=== PATIENT | male | born 1965 | race African-American/Black ===

== ENCOUNTER 2024-10-16 07:00 | Emergency (ER) | payer OTHER ==
[~2024-10-16] VITALS: Ht 177.8 cm; Wt 110.0 kg
[2024-10-16 07:33] VITALS: BP 180/110; PULSE 105; RESP 16; TEMP 36.7; O2SAT 99
== END 2024-10-16 09:13 | disposition left against medical advice (07) ==
LOC: ER 07:00
DX: M79.10 Myalgia, unspecified site (principal); R53.1 Weakness; Z53.21 Procedure and treatment not carried out due to patient leaving prior to being seen by health care provider